=== PATIENT | female | born 1980 | race Two or more races ===

== ENCOUNTER → 2018-10-19 | Outpatient (CLI) | payer SELFPAY ==
[~2018-10-19] VITALS: Ht 167.6 cm; Wt 129.0 kg
[2018-10-19 08:31] VITALS: BP 108/78
== END | disposition home or self-care (01) ==
LOC: HBOWC 07:53
PROVIDERS: ATTEND Nurse Practitioner Adult Health
DX: T81.89XA Other complications of procedures, not elsewhere classified, initial encounter (principal); Y83.8 Other surgical procedures as the cause of abnormal reaction of the patient, or of later complication, without mention of misadventure at the time of the procedure; Y92.89 Other specified places as the place of occurrence of the external cause

== ENCOUNTER → 2018-11-07 | Outpatient (CLI) | payer SELFPAY ==
[2018-11-07 15:22] VITALS: BP 116/65
== END | disposition home or self-care (01) ==
LOC: HBOWC 14:55
PROVIDERS: ATTEND Nurse Practitioner Adult Health
DX: T81.89XD Other complications of procedures, not elsewhere classified, subsequent encounter (principal); Y83.8 Other surgical procedures as the cause of abnormal reaction of the patient, or of later complication, without mention of misadventure at the time of the procedure

== ENCOUNTER → 2018-11-23 | Outpatient (CLI) | payer SELFPAY ==
[2018-11-23 08:00] VITALS: BP 149/80
== END | disposition home or self-care (01) ==
LOC: HBOWC 08:23
PROVIDERS: ATTEND Nurse Practitioner Adult Health
DX: S31.109D Unspecified open wound of abdominal wall, unspecified quadrant without penetration into peritoneal cavity, subsequent encounter (principal); Z90.721 Acquired absence of ovaries, unilateral; X58.XXXD Exposure to other specified factors, subsequent encounter